=== PATIENT | female | born 2000 | race Caucasian/White ===

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

== ENCOUNTER → 2020-09-16 | Outpatient (CLI) | payer BC | LOC: LAB 08:23 → LAB SHORT 08:23 | PROVIDERS: Internal Medicine | DX: N92.1 Excessive and frequent menstruation with irregular cycle (principal); L70.0 Acne vulgaris; L68.9 Hypertrichosis, unspecified; Z91.018 Allergy to other foods | CPT/HCPCS: 81050; 82530 ==

== ENCOUNTER → 2020-11-03 | Outpatient (CLI) | payer BC | LOC: LAB SHORT 09:18 | DX: R21 Rash and other nonspecific skin eruption (principal); R19.7 Diarrhea, unspecified | CPT/HCPCS: 81050 ==

== ENCOUNTER → 2021-02-03 | Outpatient (CLI) | payer BC ==
[2021-02-04 09:00] LABS: Candida species (DNA Probe) Negative (NEGATIVE); G. vaginalis (DNA Probe) Negative (NEGATIVE); T. vaginalis (DNA Probe) Negative (NEGATIVE)
== END | disposition home or self-care (01) ==
LOC: LAB SHORT 15:18 → LAB 15:18
PROVIDERS: Internal Medicine
DX: R10.2 Pelvic and perineal pain (principal)
CPT/HCPCS: 87480; 87510; 87660

== ENCOUNTER → 2025-03-17 | Outpatient (CLI) | payer OTHER | LOC: LAB 15:33 → LAB SHORT 15:33 | DX: L08.0 Pyoderma (principal) | CPT/HCPCS: 87070; 87075; 87205 ==

== ENCOUNTER → 2025-03-25 | Outpatient (CLI) | payer OTHER | END | disposition home or self-care (01) | LOC: LAB 11:45 → LAB SHORT 11:45 | DX: R05.3 Chronic cough (principal) | CPT/HCPCS: 87070; 87205 ==